=== PATIENT | female | born 1960 | race Two or more races ===

== ENCOUNTER 2024-06-22 07:30 | Inpatient (IN) | payer OTHER ==
[~2024-06-22] VITALS: Ht 170.2 cm; Wt 69.9 kg
[2024-06-25] MEDS ORDERED: MULTIPLE VITAM1 EAC2 PO (08:45)
[2024-06-25] MEDS ORDERED: SYNTHROID137 MCG PO (08:45)
[2024-06-25 08:51] VITALS: BP 150/62
[2024-06-29] MEDS ORDERED: CEFAZOLIN SODIUM 1,000 MG VIAL ONE (09:58)
[2024-06-29] MEDS ORDERED: KETOROLAC TROMETHAMINE 60 MG VIAL IM ONE (10:45)
[2024-06-29] MEDS ORDERED: POVIDONE-IODINE 118 ML BOTT TOP ONE (10:45)
[2024-06-29] MEDS ORDERED: LIDOCAINE HCL 1%/EPINEPHRINE 20ML VIAL IJ ONE (10:46)
[2024-06-29] MEDS ORDERED: VANCOMYCIN HCL 1,000 MG VIAL ONE (10:46)
[2024-06-29] MEDS ORDERED: BUPIVACAINE HCL/MPF 0.5% 30ML VIAL ONE (10:46)
[2024-06-29] MEDS ORDERED: TRANEXAMIC ACID 100MG/1ML (1000MG) AMPUL IV ONE (10:46)
[2024-06-29] MEDS ORDERED: SODIUM CHLORIDE 0.45 % 1,000 ML IV SCH (13:00)
[2024-06-29] MEDS ORDERED: ONDANSETRON HCL 2 MG/ML VIAL IV PRN (13:00)
[2024-06-29] MEDS ORDERED: ISOPROPYL ALCOHOL 30 ML OUNCE TOP ONE (13:00)
[2024-06-29] MEDS ORDERED: OxyCODONE HCL 5 MG TABLET (ROXICODONE) PO PRN (13:00)
[2024-06-29] MEDS ORDERED: MORPHINE SULFATE 4 MG/ML CARTRIDGE IV PRN (13:00)
[2024-06-29] MEDS ORDERED: MORPHINE SULFATE 4 MG/ML VIAL IV ONE ×2 (13:45→15:00)
[2024-06-29] MEDS ORDERED: ENALAPRILAT DIHYDRATE 1.25 MG/ML VIAL IV PRN (16:15)
[2024-06-29] MEDS ORDERED: CEFAZOLIN SODIUM 1,000 MG VIAL IV SCH (17:00)
[2024-06-29] MEDS ORDERED: GABAPENTIN 300 MG CAPSULE PO SCH (17:00)
[2024-06-29 17:28] VITALS: BP 140/77; O2SAT 98
[2024-06-29] MEDS ORDERED: ACETAMINOPHEN 500 MG GEL..CAP PO SCH (18:00)
[2024-06-29 20:00] VITALS: BP 124/77
[2024-06-30] VITALS: BP 112/72
[2024-06-30] MEDS ORDERED: LEVOTHYROXINE SODIUM 137 MCG TABLET PO SCH (06:00)
[2024-06-30 06:55] LABS: HEMATOCRIT 36.4 % (36.0-45.00); HEMOGLOBIN 12.5 g/dL (12.0-15.00); MEAN CELL VOLUME 88.9 fL (80.00-100.00); MEAN CORPUSCULAR HEMOGLOBIN 30.6 pg (27.00-32.0); MEAN CORPUSCULAR HGB CONC 34.5 g/dl (32.0-36.0); PLATELET COUNT 221 K/uL (150-450); RED BLOOD COUNT 4.09 M/uL (4.00-6.00)
[2024-06-30] MEDS ORDERED: ELIQUIS2.5 MG PO (07:44)
[2024-06-30] MEDS ORDERED: PERCOCET 5-3251 EACH PO (07:44)
[2024-06-30] MEDS ORDERED: DUI500 PO (07:44)
[2024-06-30 08:48] VITALS: BP 126/84
[2024-06-30] MEDS ORDERED: SENNOSIDES 1 TAB TABLET PO SCH (09:00)
[2024-06-30] MEDS ORDERED: APIXABAN 2.5 MG TABLET PO SCH (09:00)
[2024-06-30 14:02] LABS: COVID-19 AG NEGATIVE (NEGATIVE)
[2024-06-30 16:00] VITALS: BP 131/76
[2024-07-01 00:14] VITALS: BP 99/63
[2024-07-01 06:17] LABS: HEMATOCRIT 34.6 % (36.0-45.00); HEMOGLOBIN 11.7 g/dL (12.0-15.00); MEAN CELL VOLUME 89.6 fL (80.00-100.00); MEAN CORPUSCULAR HEMOGLOBIN 30.3 pg (27.00-32.0); MEAN CORPUSCULAR HGB CONC 33.8 g/dl (32.0-36.0); PLATELET COUNT 227 K/uL (150-450); RED BLOOD COUNT 3.86 M/uL (4.00-6.00); RED CELL DISTRIBUTION WIDTH 13.4 % (11.5-14.5)
[2024-07-01 06:48] LABS: ALBUMIN 3.4 gm/dL (3.4-5.0); BILIRUBIN TOTAL 1.29 mg/dL (0.3-1.2); CALCIUM 8.8 mg/dL (8.5-10.1); CREATININE SERUM 0.69 mg/dL (0.55-1.02); GFR 85.38; POTASSIUM 4.14 mEq/L (3.5-5.1); TOTAL PROTEIN 6.4 gm/dL (6.4-8.2)
[2024-07-01 08:13] VITALS: BP 105/66
[2024-07-01] MEDS ORDERED: IRON FUM,PS/FOLIC ACID/VITC/B3 1 CAP CAPSULE PO SCH (09:00)
[2024-07-01 16:49] VITALS: BP 97/62
[2024-07-02] VITALS: BP 108/72
[2024-07-02 08:16] VITALS: BP 105/67
== END 2024-07-02 14:12 | disposition home or self-care (01) | DRG 470 ==
LOC: O/R 06-29 05:47 → OB/GYN 06-29 05:47 → SURH 06-29 07:30 → OB/GYN 06-29 15:06
PROVIDERS: ADMIT Orthopaedic Surgery; ATTEND Orthopaedic Surgery
PROC: 0SRC0J9 Replacement of Right Knee Joint with Synthetic Substitute, Cemented, Open Approach (ICD-10-PCS; principal; 2024-06-29 10:30)
DX: M17.11 Unilateral primary osteoarthritis, right knee (principal); M80.061A Age-related osteoporosis with current pathological fracture, right lower leg, initial encounter for fracture; M22.11 Recurrent subluxation of patella, right knee; E03.9 Hypothyroidism, unspecified

== ENCOUNTER 2025-01-03 13:48 | Emergency (ER) | payer OTHER ==
[~2025-01-03] VITALS: Ht 170.2 cm; Wt 73.9 kg
[~2025-01-03 13:48] MED LIST: DUI500 PO; ELIQUIS2.5 MG PO; MULTIPLE VITAM1 EAC2 PO; PERCOCET 5-3251 EACH PO; SYNTHROID137 MCG PO
[2025-01-03] MEDS ORDERED: ORPHENADRINE CITRATE 30 MG/ML AMPUL IM ONE (19:30)
[2025-01-03] MEDS ORDERED: ACETAMINOPHEN 500 MG GEL..CAP PO ONE ×2 (19:30→20:48)
[2025-01-03] MEDS ORDERED: KETOROLAC TROMETHAMINE 30 MG VIAL IU ONE (19:30)
[2025-01-03] MEDS ORDERED: 0.9 % SODIUM CHLORIDE 1,000 ML IV SCH (19:30)
[2025-01-03] MEDS ORDERED: FAMOtidine 10 MG/ML (4ML VIAL) IV PUSH ONE (19:30)
[2025-01-03] MEDS ORDERED: DEXAMETHASONE SODIUM PHOSPHATE 4 MG/ML VIAL IV ONE (19:30)
[2025-01-03 19:55] LABS: BASO % 0.4 % (0.1-1.2); EOS # 0.14 (0.04-0.54); EOS % 2.0 % (0.7-7.0); LYMPH # 2.18 (1.18-3.74); LYMPH % 31.6 % (19.3-53.1); MEAN PLATELET VOLUME 11.00 fl (9.4-12.4); MONO # 0.47 (0.24-0.82); MONO % 6.8 % (4.7-12.5); NEUT # 4.05 (1.56-6.13); NEUT % 58.9 % (34.0-71.1); RED CELL DISTRIBUTION WIDTH 12.4 % (11.6-14.4)
[2025-01-03 20:19] LABS: INR 0.98
[2025-01-03 20:25] LABS: ALT/SGPT 22.0 U/L (12-78); AST/SGOT 16.0 U/L (15-37); BILIRUBIN TOTAL 0.72 mg/dL (0.3-1.2); BUN CREA RATIO 27.0 (7.0-25.0); CREATININE SERUM 0.73 mg/dL (0.55-1.02); GFR 79.76; GLOBULINA 3.3 G/DL (2.4-3.5); GLUCOSE FASTING 135.0 mg/dL (65-100); OSMOLALITY SERUM 290.0 MOSM/KG (275-295); PHOSPHOKINASE CREATININE 135.0 U/L (26-192)
[2025-01-03] MEDS ORDERED: FAMOTIDINE/PF 20 MG/2 ML VIAL ONE (20:48)
[2025-01-03] MEDS ORDERED: ORPHENADRINE CITRATE 30 MG/ML AMPUL ONE (20:48)
[2025-01-03] MEDS ORDERED: DEXAMETHASONE SODIUM PHOSPHATE 4 MG/ML VIAL ONE (20:48)
[2025-01-03] MEDS ORDERED: KETOROLAC TROMETHAMINE 30 MG VIAL ONE (20:48)
[2025-01-04] MEDS ORDERED: KETO10TA2 PO (00:26)
[2025-01-04] MEDS ORDERED: MEDROLPACK PO (00:26)
[2025-01-04] MEDS ORDERED: NORFLEX100MG PO (00:26)
[2025-01-04] MEDS ORDERED: PEPCID AC20 MG PO (00:26)
== END 2025-01-04 01:04 | disposition home or self-care (01) ==
LOC: ER 13:49
PROVIDERS: General Practice
DX: S30.0XXA Contusion of lower back and pelvis, initial encounter (principal); W18.39XA Other fall on same level, initial encounter; Y93.89 Activity, other specified; Y92.012 Bathroom of single-family (private) house as the place of occurrence of the external cause; Y99.9 Unspecified external cause status; M51.26 Other intervertebral disc displacement, lumbar region; E03.9 Hypothyroidism, unspecified
CPT/HCPCS: 36415; 72131; 96365; 96366; 96372; 99284; J1100; J1885; J2360; J3490; J7030